=== PATIENT | female | born 1960 | race American Indian/Alaskan Native ===

== ENCOUNTER 2017-04-24 21:45 | Emergency (ER) | payer OTHER ==
[2017-04-24 23:15] LABS: Basophils % (Auto) 0.3 % (0.0-1.8); Eosinophils % (Auto) 0.1 % (0.0-4.3); Hematocrit 43.7 % (30.3-42.9); Mean Corpuscular HGB Conc 34 % (30-34); Mean Corpuscular Hemoglobin 30 pg (28-32); Mean Corpuscular Volume 88 fl (79-97); Platelet Count 298 K/mm3 (140-440); Red Blood Count 4.97 M/mm3 (3.65-5.03); Red Cell Distribution Width 12.6 % (13.2-15.2); White Blood Count 10.3 K/mm3 (4.5-11.0)
[2017-04-24 23:23] LABS: Alanine Aminotransferase 18 units/L (7-56); Albumin 4.8 g/dL (3.9-5); Albumin/Globulin Ratio 1.1 %; Alkaline Phosphatase 121 units/L (35-129); Anion Gap 23 mmol/L; BUN/Creatinine Ratio 23.33; Blood Urea Nitrogen 14 mg/dL (7-17); Calcium 11.4 mg/dL (8.4-10.2); Carbon Dioxide 26 mmol/L (22-30); Chloride 89.3 mmol/L (98-107); Glucose 121 mg/dL (65-100); Lipase 13 units/L (13-60); Potassium 3.8 mmol/L (3.6-5.0); Sodium 134 mmol/L (137-145); Total Protein 9.1 g/dL (6.3-8.2)
[2017-04-25 08:38] LABS: Bacteria,Urine 3+ /HPF (Negative); Bilirubin,Urine NEG (Negative); Blood,Urine MOD (Negative); Ketones,Urine 20 mg/dL (Negative); Leukocyte Esterase,Urine TR (Negative); Mucus,Urine 2+ /HPF; Nitrite,Urine POS (Negative); Urobilinogen,Urine < 2.0 mg/dL (<2.0)
[2017-04-25] MEDS ORDERED: CARAFATE PO ONE (13:18)
[2017-04-25] MEDS ORDERED: PEPCID IV ONE (13:18)
[2017-04-25] MEDS ORDERED: ALUM-MAG HYDROX-SIMETH 200-200-20MG/5ML PO ONE (13:18)
[2017-04-25] MEDS ORDERED: NACL 0.9% 1000 ML 1,000 ML IV ONE (13:18)
[2017-04-25] MEDS ORDERED: ZOFRAN IV ONE (13:18)
[2017-04-25] MEDS ORDERED: BENTYL IM ONE (13:18)
--- NOTE | 2017-04-25 13:21 | Emergency Department Report ---
ED General Adult HPI - General Chief complaint: Abdominal Pain Stated complaint: VOMITING X 5 DAYS Time Seen by Provider: 04/25/17 13:07 Source: patient, RN notes reviewed Mode of arrival: Ambulatory Limitations: Other (patient is a poor historian) - History of Present Illness Initial comments: Since a 56-year-old female. She is previously known to me. She does not have a primary care doctor. She denies chronic medical conditions. The patient presents to the ER complaining of diffuse abdominal pain. The pains are present for 5 days. She reports it is all over. The pain increases with palpation and decreases with rest. There is no chest pain, there is no shortness of breath, there is no diaphoresis. Patient denies hematemesis and bright red blood per rectum. She reports that she has not had a bowel movement. The patient further reports that she threw up "black stuff." The patient reports that it was not coffee grounds, and that she is not taking Pepto-Bismol, oral iron supplementation. The patient denies dysuria, but admits to some urinary hesitancy. -: Gradual Location: abdomen Severity scale (0 -10): 0 Consistency: intermittent Improves with: rest Worsens with: movement Associated Symptoms: loss of appetite, malaise, nausea/vomiting. denies: chest pain, cough - Related Data Previous Rx's Medication Instructions Recorded Last Taken Type Dicyclomine [Bentyl] 10 mg PO QID PRN #20 capsule 04/25/17 Unknown Rx Famotidine [Pepcid] 20 mg PO QDAY #30 tablet 04/25/17 Unknown Rx Ondansetron [Zofran Odt] 4 mg PO QID PRN #20 tab.rapdis 04/25/17 Unknown Rx Allergies Allergy/AdvReac Type Severity Reaction Status Date / Time No Known Allergies Allergy Verified 05/20/14 20:14 ED Review of Systems ROS: Stated complaint: VOMITING X 5 DAYS Other details as noted in HPI Constitutional: malaise. denies: fever Eyes: denies: vision change ENT: denies: epistaxis Respiratory: denies: cough Cardiovascular: denies: chest pain Gastrointestinal: abdominal pain, nausea Genitourinary: as per HPI Musculoskeletal: denies: back pain Neurological: weakness Psychiatric: as per HPI ED Past Medical Hx - Past Medical History Previous Medical History?: Yes Hx Congestive Heart Failure: No Hx Diabetes: No Hx Asthma: Yes Hx COPD: No Additional medical history: GERD - Social History Smoking Status: Unknown if ever smoked Substance Use Type: None - Medications Home Medications: Home Medications Medication Instructions Recorded Confirmed Last Taken Type Dicyclomine [Bentyl] 10 mg PO QID PRN #20 capsule 04/25/17 Unknown Rx Famotidine [Pepcid] 20 mg PO QDAY #30 tablet 04/25/17 Unknown Rx Ondansetron [Zofran Odt] 4 mg PO QID PRN #20 tab.rapdis 04/25/17 Unknown Rx ED Physical Exam - General Limitations: Other (patient is a poor historian) General appearance: alert, in no apparent distress - Head Head exam: Present: atraumatic, normocephalic - Eye Eye exam: Present: normal appearance, EOMI - ENT ENT exam: Present: normal exam, normal orophraynx, mucous membranes moist - Neck Neck exam: Present: normal inspection, full ROM - Respiratory Respiratory exam: Present: normal lung sounds bilaterally. Absent: respiratory distress, wheezes, rales, rhonchi, stridor - Cardiovascular Cardiovascular Exam: Present: regular rate, normal rhythm, normal heart sounds. Absent: systolic murmur, diastolic murmur, rubs, gallop - GI/Abdominal GI/Abdominal exam: Present: soft, tenderness (epigastric abdominal tenderness. Negative Foster sign.), normal bowel sounds. Absent: distended, guarding, rebound, rigid - Rectal Rectal exam: Present: normal inspection, normal rectal tone, heme (-) stool, other (during rectal examination, I am escorted by ER nurse Sally Benavides) - Extremities Exam Extremities exam: Present: normal inspection, full ROM, normal capillary refill. Absent: tenderness, calf tenderness - Back Exam Back exam: Present: normal inspection, full ROM. Absent: CVA tenderness (L), muscle spasm, paraspinal tenderness, vertebral tenderness - Neurological Exam Neurological exam: Present: alert, oriented X3, other (Extraocular movements intact. Tongue midline. No facial droop. Facial sensation intact to light touch in the V1, V2, V3 distribution bilaterally. 5 and 5 strength in 4 extremities.. Sensation is intact to light touch in 4 extremities.). Absent: motor sensory deficit - Psychiatric Psychiatric exam: Present: normal affect, normal mood - Skin Skin exam: Present: warm, dry, intact, normal color. Absent: rash ED Course Vital Signs 04/24/17 04/25/17 04/25/17 22:32 05:57 09:06 Temperature 99.2 F 98.3 F Pulse Rate 72 85 93 H Respiratory 16 18 Rate Blood Pressure 120/88 134/91 Blood Pressure [Left] O2 Sat by Pulse 98 96 Oximetry 04/25/17 04/25/17 04/25/17 09:30 10:00 10:30 Temperature Pulse Rate 75 76 66 Respiratory 12 21 16 Rate Blood Pressure 137/88 134/82 148/88 Blood Pressure [Left] O2 Sat by Pulse 96 99 99 Oximetry 04/25/17 04/25/17 04/25/17 11:00 11:30 12:00 Temperature Pulse Rate 70 76 78 Respiratory 16 59 H 16 Rate Blood Pressure 149/87 138/82 148/90 Blood Pressure [Left] O2 Sat by Pulse 97 97 97 Oximetry 04/25/17 04/25/17 04/25/17 12:30 13:00 13:30 Temperature Pulse Rate 70 67 74 Respiratory 16 17 14 Rate Blood Pressure 145/90 143/83 151/87 Blood Pressure [Left] O2 Sat by Pulse 97 97 96 Oximetry 04/25/17 04/25/17 14:00 17:26 Temperature Pulse Rate 71 74 Respiratory 17 16 Rate Blood Pressure 148/78 Blood Pressure 115/63 [Left] O2 Sat by Pulse 98 95 Oximetry - Reevaluation(s) Reevaluation #1: 04/25/17 14:51 Differential diagnosis: GERD, gastritis, pancreatitis, constipation, bowel obstruction, urinary tract infection Assessment and plan: 56-year-old female with epigastric abdominal pain and tenderness, nausea, vomiting, obstructive urinary symptoms, guaiac-negative, no bright red blood, currently no active vomiting. She is treated symptomatically feels improved. Her EKG is morphologically within normal limits, symptoms present for 5 days, I find the patient to be low risk by CRISTI score and low risk by heart score. Her EKG is morphologically unchanged from her prior EKG, I don't believe she requires admission for ACS risk stratification. A CT scan of the abdomen and pelvis with IV and oral contrast is pending. There is no active emesis in the ER, given that her hemoglobin and hematocrit are appropriate, given that she has no bright red blood per rectum and her stool is guaiac-negative, if the CT scan does not demonstrate any significant disease, I feel the patient is suitable to follow-up with outpatient gastroenterology as an outpatient. 04/25/17 14:51 Reevaluation #2: 04/25/17 14:53 Sodium: 134 Potassium: 3.8 Chloride: 89.3 Anion gap: 23 Reevaluation #3: 04/25/17 17:32 CT scan of the abdomen and pelvis negative. Patient tolerating oral contrast without difficulty. Belly soft on repeat examination. The patient will be discharged at this time. She can follow up with outpatient gastroenterology. Return precautions are reviewed. No further nausea or vomiting noted. ED Medical Decision Making - Lab Data Result diagrams: 04/24/17 22:49 04/24/17 22:49 Vital Signs 04/24/17 04/25/17 04/25/17 22:32 05:57 09:06 Temperature 99.2 F 98.3 F Pulse Rate 72 85 93 H Respiratory 16 18 Rate Blood Pressure 120/88 134/91 O2 Sat by Pulse 98 96 Oximetry 04/25/17 04/25/17 04/25/17 09:30 10:00 10:30 Temperature Pulse Rate 75 76 66 Respiratory 12 21 16 Rate Blood Pressure 137/88 134/82 148/88 O2 Sat by Pulse 96 99 99 Oximetry 04/25/17 04/25/17 04/25/17 11:00 11:30 12:00 Temperature Pulse Rate 70 76 78 Respiratory 16 59 H 16 Rate Blood Pressure 149/87 138/82 148/90 O2 Sat by Pulse 97 97 97 Oximetry 04/25/17 04/25/17 04/25/17 12:30 13:00 13:30 Temperature Pulse Rate 70 67 74 Respiratory 16 17 14 Rate Blood Pressure 145/90 143/83 151/87 O2 Sat by Pulse 97 97 96 Oximetry 04/25/17 14:00 Temperature Pulse Rate 71 Respiratory 17 Rate Blood Pressure 148/78 O2 Sat by Pulse 98 Oximetry Lab Results 04/24/17 04/24/17 04/25/17 Range/Units 22:49 22:49 08:22 WBC 10.3 (4.5-11.0) K/mm3 RBC 4.97 (3.65-5.03) M/mm3 Hgb 15.0 H (10.1-14.3) gm/dl Hct 43.7 H (30.3-42.9) % MCV 88 (79-97) fl MCH 30 (28-32) pg MCHC 34 (30-34) % RDW 12.6 L (13.2-15.2) % Plt Count 298 (140-440) K/mm3 Lymph % (Auto) 24.3 (13.4-35.0) % [place] % (Auto) 7.4 H (0.0-7.3) % Eos % (Auto) 0.1 (0.0-4.3) % Baso % (Auto) 0.3 (0.0-1.8) % Lymph # 2.5 (1.2-5.4) K/mm3 Perkins # 0.8 (0.0-0.8) K/mm3 Eos # 0.0 (0.0-0.4) K/mm3 Baso # 0.0 (0.0-0.1) K/mm3 Seg Neutrophils % 67.9 (40.0-70.0) % Seg Neutrophils # 7.0 (1.8-7.7) K/mm3 Carbon Dioxide 26 (22-30) mmol/L BUN 14 (7-17) mg/dL Creatinine 0.6 L (0.7-1.2) mg/dL Estimated GFR > 60 ml/min BUN/Creatinine Ratio 23.33 % Glucose 121 H (65-100) mg/dL Calcium 11.4 H (8.4-10.2) mg/dL Total Bilirubin 0.60 (0.1-1.2) mg/dL AST 20 (5-40) units/L ALT 18 (7-56) units/L Alkaline Phosphatase 121 (35-129) units/L Total Protein 9.1 H (6.3-8.2) g/dL Albumin 4.8 (3.9-5) g/dL Albumin/Globulin Ratio 1.1 % Lipase 13 (13-60) units/L Urine Color Yellow (Yellow) Urine Turbidity Clear (Clear) Urine pH 5.0 (5.0-7.0) Ur Specific [place] 1.030 (1.003-1.030) Urine Protein 30 mg/dl (Negative) mg/dL Urine Glucose (UA) Neg (Negative) mg/dL Urine Ketones 20 (Negative) mg/dL Urine Blood Mod (Negative) Urine Nitrite Pos (Negative) Urine Bilirubin Neg (Negative) Urine Urobilinogen < 2.0 (<2.0) mg/dL Ur Leukocyte Esterase Tr (Negative) Urine WBC (Auto) 10.0 H (0.0-6.0) /HPF Urine RBC (Auto) 6.0 (0.0-6.0) /HPF U Epithel Cells (Auto) 6.0 (0-13.0) /HPF Urine Bacteria (Auto) 3+ (Negative) /HPF Hyaline Casts 1 /LPF Urine Mucus 2+ /HPF - EKG Data -: EKG Interpreted by Me EKG shows normal: sinus rhythm, axis, intervals, QRS complexes, ST-T waves - EKG Data When compared to previous EKG there are: no significant change - Radiology Data Radiology results: pending, report reviewed CT scan of the abdomen and pelvis negative for acute disease Critical care attestation.: If time is entered above; I have spent that time in minutes in the direct care of this critically ill patient, excluding procedure time. ED Disposition Clinical Impression: Abdominal pain Disposition: DC-01 TO HOME OR SELFCARE Is pt being admited?: No Does the pt Need Aspirin: No Condition: Stable Instructions: Acute Nausea and Vomiting (ED), Abdominal Pain (ED) Additional Instructions: Take the pain medication, nausea medication as directed. Follow up with the primary care doctor or bone drier operator as listed within the next 7-10 days. Avoid heavy spicy rich foods, avoid consumption of alcohol, and avoid ibuprofen , Motrin, aspirin, Naprosyn. Return to the ER right away with new pain, worsened pain, migration of pain, fevers or chills, chest pain, intractable nausea or vomiting, inability to tolerate liquid feeds. Prescriptions: Dicyclomine [Bentyl] 10 mg PO QID PRN #20 capsule PRN Reason: Pain Famotidine [Pepcid] 20 mg PO QDAY #30 tablet Ondansetron [Zofran Odt] 4 mg PO QID PRN #20 tab.rapdis PRN Reason: Nausea Referrals: PRIMARY CARE, [Primary Care Provider] - 3-5 Days ABRAN HORVATH MD [Staff Physician] - 3-5 Days LLOYD RUBIN MD [Staff Physician] - 3-5 Days
--- NOTE | 2017-04-25 16:44 | Cat Scan Report ---
CT of the abdomen and pelvis with IV and oral contrast. History: Abdominal pain. Findings: There is a subcentimeter hypodensity in the posterior aspect of the right lobe of the liver. No other focal hepatic abnormalities are seen. The spleen and pancreas are normal. The gallbladder is unremarkable. The kidneys are normal in size and configuration with no evidence of mass or hydronephrosis. There is a 1.4 cm in diameter round nodule in the superior left adrenal gland, unchanged from the study in May of 2014. The right adrenal gland is normal. Multiple partially calcified uterine fibroids are noted, also relatively stable compared to the previous study. No new pelvic masses or abnormal fluid collections are seen. There are no mesenteric inflammatory changes. The appendix is normal. Impression: 1. Isolated subcentimeter hypodensity in the liver is probably benign. 2. Stable small nodule in the left adrenal gland consistent with a nonfunctioning adenoma. 3. Multiple uterine fibroids.
[2017-04-25 17:29] VITALS: BP 115/63
== END 2017-04-25 18:21 | disposition home or self-care (01) ==
LOC: ED 21:45
DX: R10.13 Epigastric pain (principal); R11.2 Nausea with vomiting, unspecified; R53.81 Other malaise; J45.909 Unspecified asthma, uncomplicated; K21.9 Gastro-esophageal reflux disease without esophagitis
CPT/HCPCS: 36415; 74177; 80053; 81001; 82271; 83690; 85025; 93005; 93010; 96361; 96372; 96374; 96375; 99284; J0500; J2405; J7030; Q9967